=== PATIENT | male | born 1960 | race Two or more races ===

== ENCOUNTER 2018-04-14 11:11 | Emergency (ER) | payer OTHER ==
--- NOTE | 2018-04-14 12:29 | EDPHY ---
HPI/HX/ROS/PE/MDM Narrative: CHIEF COMPLAINT: Facial droop, shingles HISTORY OF PRESENT ILLNESS: The patient is a 57 y/o male with a history of Parkinson's complaining of a persistent facial droop and dizziness. On 03/30/18, the patient went to a local clinic in [place] after he developed right-sided facial numbness and dizziness. 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 He was prescribed Valcyclovair and Prednisone. Once he finished those prescriptions he was supposed to go for a follow up visit. Since the diagnosis he has continued to feel dizzy, primarily when he leans his head to the right or stands up. He feels like the room is spinning. He denies falling due to the dizziness but is unable to walk when it occurs. Today he went to the [facility] urgent care as he finished his medications but continued to have the symptoms. He was referred to the emergency department. Currently he is still having the facial numbness and dizziness. He denies extremity numbness or tingling. No fever, chills, chest pain, shortness of breath, palpitations, vomiting, diarrhea, urinary complaints, headache. Followed by Dr. Ruggiero, neurologist, for his Parkinson's. A income tax adjuster was used to communicate with this patient. REVIEW OF SYSTEMS: Aside from elements discussed in the HPI, a comprehensive 10-point review of systems was reviewed and is negative. 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 HEENT: Atraumatic. Obvious facial asymmetry with right-sided facial droop. Eyes: Lid leg on the right with difficulty closing the eye fully. No icterus, no injection. No nystagmus. Ears: I see no lesions in the external auditory canal. Tympanic membrane on the right is slightly erythematous. Mouth: moist mucous membranes. No erythema or lesions. Neck: supple with no adenopathy. LUNGS: Clear to auscultation bilaterally, no wheezes, rhonchi or rales. CARDIAC: Regular rate and rhythm, no rubs, murmurs or gallops. ABDOMEN: Soft, nontender, nondistended, bowel sounds normal. BACK: No CVA tenderness. EXTREMITIES: No trauma. No edema. Range of motion is normal throughout. NEURO: Alert and oriented, cranial nerves intact with the exception of the 7th cranial nerve on the right. Unable to raise right eye brow, close right eye all the way, right-sided facial droop. Motor strength 5 over 5 in all major muscle groups. Sensation intact to light touch. SKIN: Warm and dry, no rash. PSYCHIATRIC: Normal mentation, no agitation. Portions of this note were transcribed by a director medical safety. I personally performed a history, physical exam, medical decision making, and confirmed accuracy of information the transcribed note. ED Course: The patient is a 57 y/o male with a history of Parkinson's presenting with a facial droop and ongoing dizziness after being diagnosed g the hot 2 weeks ago.. Upon exam the patient is unable to raise right eye brow, close his right eye all the way, and he has a right-sided facial droop. Labs and EKG ordered; 25mg PO Meclizine and 500mL IV NS administered. 1306: 12-LEAD EKG: Please see the full report in [facility]. My interpretation: Sinus rhythm with a rate of 92. Patient's labs including electrolytes and troponin are negative for any acute findings. 1425: I consulted with Dr. Gray, neurologist, regarding this patient. 1428: Reassessed patient, he feels mildly better. I have prescribed him Meclizine for the dizziness and advised him to follow up with a neurologist. Return precautions provided; patient and his family are comfortable with this plan. Please see the discharge instructions. MDM: Differential diagnosis of the patient's dizziness was considered including but not limited to peripheral and central causes of vertigo, cardiac arrhythmias, cardiac ischemia, electrolyte disturbances, neurologic causes, orthostatic causes including dehydration, and blood loss. - Data Points Laboratory Results: Laboratory Results 04/14/18 11:15 04/14/18 11:15 04/14/18 04/14/18 11:15 11:15 WBC 8.58 10^3/uL 10^3/uL (3.80-9.50) RBC 5.85 10^6/uL 10^6/uL (4.40-6.38) Hgb 18.3 g/dL H g/dL (13.7-17.5) Hct 54.5 % H % (40.0-51.0) MCV 93.2 fL fL (81.5-99.8) MCH 31.3 pg pg (27.9-34.1) MCHC 33.6 g/dL g/dL (32.4-36.7) RDW 13.2 % % (11.5-15.2) Plt Count 231 10^3/uL 10^3/uL (150-400) MPV 10.6 fL fL (8.7-11.7) Neut % (Auto) 70.3 % % (39.3-74.2) Lymph % (Auto) 22.8 % % (15.0-45.0) Kemper % (Auto) 6.3 % % (4.5-13.0) Eos % (Auto) 0.1 % L % (0.6-7.6) Baso % (Auto) 0.3 % % (0.3-1.7) Nucleat RBC Rel Count 0.0 % % (0.0-0.2) Absolute Neuts (auto) 6.02 10^3/uL 10^3/uL (1.70-6.50) Absolute Lymphs (auto) 1.96 10^3/uL 10^3/uL (1.00-3.00) Absolute Monos (auto) 0.54 10^3/uL 10^3/uL (0.30-0.80) Absolute Eos (auto) 0.01 10^3/uL L 10^3/uL (0.03-0.40) Absolute Basos (auto) 0.03 10^3/uL 10^3/uL (0.02-0.10) Absolute Nucleated RBC 0.00 10^3/uL 10^3/uL (0-0.01) Immature Gran % 0.2 % % (0.0-1.1) Immature Gran # 0.02 10^3/uL 10^3/uL (0.00-0.10) Sodium 135 mEq/L mEq/L (135-145) Potassium 4.1 mEq/L mEq/L (3.5-5.2) Chloride 103 mEq/L mEq/L (97-110) Carbon Dioxide 24 mEq/l mEq/l (22-31) Anion Gap 8 mEq/L mEq/L (6-14) BUN 12 mg/dL mg/dL (7-23) Creatinine 0.8 mg/dL mg/dL (0.7-1.3) Estimated GFR > 60 Glucose 113 mg/dL H mg/dL (70-100) Calcium 9.3 mg/dL mg/dL (8.5-10.4) Troponin I < 0.012 ng/mL ng/mL (0.000-0.034) Medications Given: Discontinued Medications Sodium Chloride (Ns) 500 mls @ 1,000 mls/hr IV EDNOW ONE PRN Reason: Protocol Stop: 04/14/18 13:22 Last Admin: 04/14/18 13:00 Dose: 500 mls Meclizine HCl (Meclizine Hcl) 25 mg PO EDNOW ONE Stop: 04/14/18 12:54 Last Admin: 04/14/18 13:01 Dose: 25 mg General Time Seen by Provider: 04/14/18 11:58 Initial Vital Signs: Initial Vital Signs Temperature (C) 36.6 C 04/14/18 11:19 Heart Rate 91 04/14/18 11:19 Respiratory Rate 18 04/14/18 11:19 Blood Pressure 159/98 H 04/14/18 11:19 O2 Sat (%) 94 04/14/18 11:19 O2 Delivery Mode Room Air Allergies/Adverse Reactions: No Known Allergies Allergy (Unverified 04/14/18 11:18) Home Medications: Medication Instructions Recorded Carbidopa-Levo 10-100 mg Odt 04/14/18 Meclizine HCl [Meclizine HCl 25 mg 25 mg PO Q8 PRN #20 tab 04/14/18 (RX,OTC)] Departure - Departure Disposition: Home, Routine, Self-Care Clinical Impression: Ca palsy Condition: Good Instructions: Ca Palsy (ED), Vertigo (ED) Additional Instructions: You been given a prescription for meclizine. This is also available over-the- counter. It should help with the dizziness. Te hemos dado robe receta para Meclizine. Esta tambien se puede comprar sin receta. Debe ayudarte con el mareo. Dose is 25 mg 2 to 3 times a day. It may make you sleepy. Dosis es 25mg 2 a 3 veces por gurinder. Te puede evan sueno. This virus is involving your 7th and 8th cranial nerve which is why you are having dizziness. Milena virus involucra betty nervios cranios 7 y 8 y es por eso que tiene mareo. Please follow up with your regular neurologist or with Dr. Gray. You should follow up within the next week to 10 days. Por favor lalitha de seguimiento con [facility] neurologo normal o con el Dr. Gray. Debe tener la lalitha dentro de la proxima semana a 10 sethi. It is very important that you use artificial eyedrops to avoid any drying of the right eye and you should tape the eye shut at night. Es muy importante que uses Gotas de lagrimas artificiales para los ojos para evitar la sequedad del etelvina derecho y debes de cerrar el etelvina en la noche para dormir con cinta del hospital. Referrals: [facility],. [Clinic] - As per Instructions To Gray MD [Medical Doctor] - As per Instructions Stand Alone Forms: Work Excuse Prescriptions: Meclizine HCl [Meclizine HCl 25 mg (RX,OTC)] 25 mg PO Q8 PRN #20 tab PRN Reason: Dizziness Print Language: Maltese Report Scribed for: Fanta Méndez Report Scribed by: Marion Garland Date of Report: 04/14/18 Time of Report: 12:29
[2018-04-14] MEDS ORDERED: NS 500 ML IV ONE (12:53)
[2018-04-14] MEDS ORDERED: MECLIZINE HCL 25 MG TAB PO ONE (12:53)
[2018-04-14 13:00] LABS: PLATELET COUNT 231 10^3/uL (150-400)
[2018-04-14 14:51] VITALS: BP 150/99
--- NOTE | 2018-04-14 15:28 | CPEKG ---
Test Reason : OPEN Blood Pressure : / mmHG Vent. Rate : 092 BPM Atrial Rate : 093 BPM P-R Int : 150 ms QRS Dur : 091 ms QT Int : 351 ms P-R-T Axes : 044 003 015 degrees QTc Int : 435 ms Sinus rhythm Confirmed by Fanta Méndez ([id number]) on 04/14/2018 3:27:52 PM Referred By: Confirmed By:Fanta Méndez
== END 2018-04-14 15:06 | disposition home or self-care (01) ==
LOC: EDUNIT#
DX: G51.0 Bell's palsy (principal); G20 Parkinson's disease

== ENCOUNTER → 2018-05-22 | Outpatient (CLI) | payer OTHER ==
[~2018-05-22] MED LIST: GADOBUTROL 10 ML VIAL IVP ONE
== END ==
LOC: FIMAGING 09:31
PROVIDERS: ATTEND Physician Assistant Medical
DX: R94.02 Abnormal brain scan (principal); G20 Parkinson's disease; G51.0 Bell's palsy; R42 Dizziness and giddiness
CPT/HCPCS: A9585